=== PATIENT | male | born 1970 | race Caucasian/White ===

== ENCOUNTER 2020-06-28 21:31 | Emergency (ER) | payer OTHER, SELFPAY ==
--- NOTE | ~2020-06-28 | XR_ITS ---
XR chest 1V portable 06/28/2020 22:41 Indication: Midsternal chest pain and cough Procedure: AP portable chest Comparison: 06/25/2018 Findings: Heart size upper normal for technique. No focal air space disease, pulmonary edema, pleural effusion or suspected pneumothorax. Mildly elevated right diaphragm. Impression: 1: No acute cardiopulmonary disease. Reviewed, dictated and finalized at location A. Impression: 1: No acute cardiopulmonary disease.
[2020-06-28 21:40] VITALS: BP 143/88; PULSE 110; RESP 16; TEMP 36.5; O2SAT 97
--- NOTE | 2020-06-28 22:33 | ED.GENADULT ---
HPI - General Adult General Chief complaint: Upper Respiratory Infection Stated complaint: cough Time Seen by Provider: 06/28/20 22:32 Source: patient, family and RN notes reviewed Mode of arrival: ambulatory Limitations: no limitations History of Present Illness HPI narrative: Patient is 49 years old white male presents with productive cough over the last 2 weeks. Patient denies exposure to anybody with COVID-19. Patient lives with his who is asymptomatic. Patient reports productive cough of green and yellow sputum. Patient is a smoker. Last time was seen by a physician over 2 years ago. Does not take medicine at home. Related Data Allergies Allergy/AdvReac Type Severity Reaction Status Date / Time No Known Allergies Allergy Unverified 06/25/18 01:15 Review of Systems Review of Systems: Narrative: CONSTITUTIONAL: Denies fever, chills, or sweats. EYES: Denies visual changes, redness, or discharge. ENT: Denies rhinorrhea, congestion, sore throat, or otalgia. CARDIOVASCULAR: Denies chest pain, palpitations, or edema. RESPIRATORY: Denies cough or dyspnea. GASTROINTESTINAL: Denies abdominal pain, nausea, vomiting, or diarrhea. GENITOURINARY: Denies dysuria or hematuria. SKIN: Denies rash or itching. MUSCULOSKELETAL: Denies back pain, joint pain, or myalgia. NEUROLOGIC: Denies headache, numbness, or weakness. PSYCHIATRIC: Denies anxiety or depression. Exam Narrative: Exam Narrative: General appearance: Well-developed, well-nourished, at the bedside Skin: Normal color Head: Normocephalic, nontraumatic Eyes: Clear conjunctiva ENT: Oropharynx normal, ears normal, nose normal Neck: Supple, nontender Chest and respiratory: Diminution of air entry bilaterally Heart: Tachycardia Abdomen: Soft, nontender, no organomegaly, quiet bowel sounds Vascular: Normal peripheral pulses, normal capillary refill. 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 Labs, chest x-ray ordered. Further plan to follOW Differential Diagnosis Differential Diagnosis: Pneumonia, bronchitis, COPD, CHF Vital Signs Vital Signs: Vital Signs Temperature 36.5 C 06/28/20 21:40 Pulse Rate 110 H 06/28/20 21:40 Respiratory Rate 16 06/28/20 21:40 Blood Pressure 143/88 H 06/28/20 21:40 Pulse Oximetry 97 06/28/20 21:40 Temperature 36.5 C 06/28/20 21:40 Pulse Rate 110 H 06/28/20 21:40 Respiratory Rate 16 06/28/20 21:40 Blood Pressure 143/88 H 06/28/20 21:40 Pulse Oximetry 97 06/28/20 21:40 ABG Data ABG results: 06/28/20 23:21 Puncture Site Right radial ABG pH 7.455 H ABG pCO2 38.2 ABG pO2 88.7 ABG PO2/FiO2 Ratio 4.22 ABG HCO3 26.3 H ABG O2 Saturation 97.2 ABG O2 Content 19.8 ABG Base Excess 2.4 A-a Gradient 15.3 Oxyhemoglobin 92.0 Total Hemoglobin 15.3 O2 Delivery Device Room air O2 Liters/Min Not Reportable FiO2 21 Critical Care Time Critical Care Time Critical Care Time: Yes Total Critical Care Time: 35 Di
--- NOTE | 2020-06-28 23:03 | ECG_ITS ---
Measurements Intervals [place] Rate: 103 P: 47 HI: 132 QRS: -62 QRSD: 140 T: 18 QT: 334 QTc: 438 Interpretive Statements SINUS TACHYCARDIA RIGHT BUNDLE BRANCH BLOCK LEFT ANTERIOR FASCICULAR BLOCK ABNORMAL ECG Electronically Signed On 06-29-2020 7:10:31 CDT by Shaan Main D.O.
[2020-06-28 23:26] LABS: Alveolar/Arterial O2 Gradient 15.3 mmHg; Base Excess ABG 2.4 mEq/l (+/-2.0); Fractional Inspired Oxygen 21 %; HCO3 ABG 26.3 mEq/l (22.0-26.0); Oxygen Content ABG 19.8 %vol (16.0-22.0); Oxygen Saturation ABG 97.2 % (95.0-100.0); PCO2 ABG 38.2 mmHg (35.0-45.0); PO2 ABG 88.7 mmHg (80.0-100.0); PO2 FiO2 Ratio Arterial Blood 4.22 %; Total Hemoglobin 15.3 g/dL (12.0-18.0); pH ABG 7.455 (7.350-7.450)
[2020-06-28 23:27] LABS: Device ROOM AIR; Modified Allen's Test Pass; Site Drawn RIGHT RADIAL
[2020-06-28 23:47] LABS: Basophils Absolute Auto 0.1 K/mm3 (0.0-0.1); Basophils Percent Auto 0.7 % (0.2-1.2); Eosinophils Absolute Auto 0.2 K/mm3 (0-0.3); Eosinophils Percent Auto 2.1 % (0-4.4); Hematocrit 43.8 % (42.0-52.0); Immature Granulocyte Absolute 0.03 K/mm3 (0.00-0.031); Immature Granulocyte Percent A 0.3 % (0-0.5); Lymphocytes Absolute Auto 3.25 K/mm3 (0.9-3.2); Lymphocytes Percent Auto 36.8 % (18.3-44.2); Mean Corpuscular HGB Conc 34.2 g/dl (32-36); Mean Corpuscular Hemoglobin 31.8 pg (26-34); Mean Corpuscular Volume 92.8 fl (80-100); Mean Platelet Volume 9.9 fl (7.4-10.4); Monocytes Absolute Auto 0.9 K/mm3 (0.1-0.6); Neutrophils Absolute Auto 4.4 K/mm3 (1.3-6.7); Neutrophils Percent Auto 50.1 % (45.5-73.1); Platelet Count Result 327 k/mm3 (150-375); Red Blood Count 4.72 M/mm3 (4.6-6.20); Red Cell Distribution Width 13.1 % (11.5-14.5); White Blood Count 8.8 K/mm3 (4.5-10.0)
[2020-06-28] MEDS: predniSONE 20 MG TABLET 60 MG PO (23:48)
[2020-06-28] MEDS: KETOROLAC 30 MG/ML VIAL (*BKC) IV PUSH (23:49)
[2020-06-29 00:07] LABS: D Dimer 0.79 ug/mL (<0.48)
[2020-06-29 00:11] LABS: Alanine Aminotransferase 20 U/L (4-50); Alkaline Phosphatase 95 U/L (38-126); Anion Gap 6 mmol/L (8-16); Aspartate Amino Transferase 29 U/L (17-59); Bilirubin,Total 0.2 mg/dL (0.2-1.3); Blood Urea Nitrogen 14 mg/dL (9-20); Calcium 9.1 mg/dL (8.4-10.2); Carbon Dioxide 29 mmol/L (22-30); Chloride 104 mmol/L (98-107); Estimated CRCL calculation 90 ml/min; Estimated Glomerular Filt Rate > 60; Glucose 132 mg/dL (75-110); Potassium 4.1 mmol/L (3.4-5.0); Sodium 139 mmol/L (137-145)
[2020-06-29 00:15] VITALS: BP 140/85; PULSE 89; RESP 20; O2SAT 97
== END 2020-06-29 00:17 | disposition home or self-care (01) ==
PROVIDERS: Emergency Provider Emergency Medicine
DX: J40 Bronchitis, not specified as acute or chronic (principal); R00.0 Tachycardia, unspecified; I45.2 Bifascicular block
CPT/HCPCS: 36415; 36600; 71045; 80053; 82805; 85025; 85380; 93005; 96374; 99284; J1885; J7512

== ENCOUNTER 2022-02-05 22:16 | Observation (INO) | payer OTHER, SELFPAY ==
--- NOTE | ~2022-02-05 | CT_ITS ---
EXAMINATION: CT hand LT wo con DATE: 02/06/2022 03:56 INDICATION: Recent spider bite. TECHNIQUE: Computed tomography (CT) of the left hand was performed without intravenous contrast. The dose-length product was 503.17 mGy-cm. Automated exposure control and iterative reconstruction techni que were employed. Corresponding left hand x-ray performed. COMPARISON: None FINDINGS: Left hand x-ray: No fracture, subluxation or dislocation. Mild osteoarthritis. No focal sof t tissue abnormalities. No foreign bodies. Graft CT left hand: There is skin thickening and subcutane ous infiltration. Involving the dorsal surface most prominent along the radial aspect. No discrete ab scess identified. No gas identified to suggest necrotizing infection. Process appears to be limited t o muscular fascial layers and does not involve the intrinsic muscles of the hand at the radial aspect . No acute fracture or traumatic malalignment. There is an avulsion fracture dorsal to the carpal bon es. IMPRESSION: 1. Skin thickening with subcutaneous infiltration dorsal aspect of the hand most prominent along the radial aspect. No abscess. Findings suspicious for cellulitis. Consider correlation with MRI. Reviewed, dictated and finalized at location A. IMPRESSION: 1. Skin thickening with subcutaneous infiltration dorsal aspect of the hand mos t prominent along the radial aspect. No abscess. Findings suspicious for cellul itis. Consider correlation with MRI.
--- NOTE | ~2022-02-05 | XR_ITS ---
XR hand LT min 3V 02/06/2022 01:22 Indication: Wound to the proximal thumb. Spider bite. Procedure: 3 views left hand Comparison: No prior studies for comparison. Findings: No fracture, subluxation or dislocation. No significant soft tissue abnormality. No foreign bodies. Impression: 1: No acute bone or joint abnormality. Reviewed, dictated and finalized at location A. Impression: 1: No acute bone or joint abnormality.
[2022-02-05 22:18] VITALS: BP 147/103; PULSE 101; RESP 18; TEMP 36.8; O2SAT 100
[2022-02-06] VITALS (14 sets, daily range): BP systolic 124–151; BP diastolic 68–97; PULSE 70–74; RESP 17–20; TEMP 36.4–37.1; O2SAT 97–100; BMI 35.9
--- NOTE | 2022-02-06 00:16 | ED.WOUNDLAC ---
HPI - Wound/Laceration General Chief Complaint: Wound/Laceration Stated Complaint: wound L hand Time Seen by Provider: 02/06/22 00:11 Source: patient Mode of arrival: ambulatory Limitations: no limitations History of Present Illness HPI narrative: This is a 51-year-old male that presents to the emergency department for a wound to the left hand. Noted over the last couple of days. Reports he has had drainage from the area. He cleaned it out with a knife earlier today. Does report he is an IV drug user, but that he did not shoot up in the hand. Denies fevers. Related Data Allergies Allergy/AdvReac Type Severity Reaction Status Date / Time No Known Allergies Allergy Verified 02/05/22 22:21 Review of Systems Review of Systems: CONSTITUTIONAL: Denies fever SKIN: Reports wound All systems reviewed & are unremarkable except as noted in HPI and below PMFSH Past Medical History Medical History (Updated 02/06/22 @ 01:10 by Devorah Moran PA-C) History of drug abuse Social History Social History (Updated 02/06/22 @ 00:16 by Devorah Moran PA-C) Smoking status: Current every day smoker Substance use: current Substance use type: methamphetamine Exam Narrative: GENERAL: Disheveled, well-nourished, and in no acute distress. HEAD: Normocephalic, atraumatic. EYES: EOMI. CHEST: Clear to auscultation. No respiratory distress. No wheezes rales or rhonchi HEART: Regular rate and rhythm. No murmur heard. Normal peripheral pulses. EXTREMITIES: Normal range of motion. At the base of the left hand 3cm circular wound with erythema and edema, the central portion is 0.5cm deep. Normal radial pulse. No lymphangitic streaking SKIN: Warm, dry, no rash. NEURO: No focal deficits. Alert and oriented x3. PSYCH: Normal mood and affect Course Vital Signs Vital signs: Vital Signs Temperature 98.2 F 02/05/22 22:18 Pulse Rate 101 H 02/05/22 22:18 Respiratory Rate 18 02/05/22 22:18 Blood Pressure 147/103 H 02/05/22 22:18 Pulse Oximetry 100 02/05/22 22:18 Temperature 98.2 F 02/05/22 22:18 Pulse Rate 101 H 10/29/22 22:18 Respiratory Rate 18 02/05/22 22:18 Blood Pressure 151/86 H 02/06/22 03:16 Pulse Oximetry 98 02/06/22 03:30 MDM - Wound/Laceration MDM Narrative Medical decision making narrative: Patient presents emergency department for redness and swelling of the left hand noted over the last week. Worsening over the last couple of days. Patient is afebrile and nontoxic-appearing. CBC without leukocytosis. ESR is elevated. Lactic also mildly elevated at 2.1. Left hand x-ray without evidence of soft tissue gas or foreign body. Spoke with hospitalist about patient work-up who accepts admission for further management of cellulitis. CT scan of the hand ordered to further evaluate. Blood cultures were drawn. Patient started on IV antibiotics Lab Data Attestation: I reviewed the patient's lab results. Result diagrams: 02/06/22 00:41 02/06/22 00:41 Labs: Lab Results 02/06/22 02/06/22 02/06/22 Range/Units 00:41 00:41 00:41 WBC 5.7 (4.5-10.0) K/mm3 RBC 4.41 L (4.6-6.20) M/mm3 Hgb 13.7 L (14.0-18.0) g/dL Hct 41.6 L (42.0-52.0) % MCV 94.3 (80-100) fl MCH 31.1 (26-34) pg MCHC 32.9 (32-36) g/dl RDW 12.7 (11.5-14.5) % Plt Count 270 (150-375) k/mm3 MPV 9.6 (7.4-10.4) fl Immature Gran % (Auto) 0.2 (0-0.5) % Neut % (Auto) 51.5 (45.5-73.1) % Lymph % (Auto) 34.5 (18.3-44.2) % [place] % (Auto) 10.0 H (2.6-8.5) % Eos % (Auto) 3.3 (0-4.4) % Baso % (Auto) 0.5 (0.2-1.2) % Lymph # (Auto) 1.96 (0.9-3.2) K/mm3 [place] # (Auto) 0.6 (0.1-0.6) K/mm3 Eos # (Auto) 0.2 (0-0.3) K/mm3 Baso # (Auto) 0.0 (0.0-0.1) K/mm3 Abs Immat Gran (auto) 0.01 (0.00-0.031) K/mm3 Absolute Neuts (auto) 2.9 (1.3-6.7) K/mm3 Absolute Nucleated RBC 0.0 (0.0-0.012) K/mm3 Nucleated RBC
[2022-02-06 00:49] LABS: Basophils Percent Auto 0.5 % (0.2-1.2); Eosinophils Absolute Auto 0.2 K/mm3 (0-0.3); Eosinophils Percent Auto 3.3 % (0-4.4); Hematocrit 41.6 % (42.0-52.0); Hemoglobin 13.7 g/dL (14.0-18.0); Immature Granulocyte Absolute 0.01 K/mm3 (0.00-0.031); Immature Granulocyte Percent A 0.2 % (0-0.5); Lymphocytes Absolute Auto 1.96 K/mm3 (0.9-3.2); Lymphocytes Percent Auto 34.5 % (18.3-44.2); Mean Corpuscular HGB Conc 32.9 g/dl (32-36); Mean Corpuscular Hemoglobin 31.1 pg (26-34); Mean Corpuscular Volume 94.3 fl (80-100); Mean Platelet Volume 9.6 fl (7.4-10.4); Monocytes Absolute Auto 0.6 K/mm3 (0.1-0.6); Neutrophils Absolute Auto 2.9 K/mm3 (1.3-6.7); Neutrophils Percent Auto 51.5 % (45.5-73.1); Platelet Count Result 270 k/mm3 (150-375); Red Blood Count 4.41 M/mm3 (4.6-6.20); Red Cell Distribution Width 12.7 % (11.5-14.5); White Blood Count 5.7 K/mm3 (4.5-10.0)
[2022-02-06 01:04] LABS: Lactic Acid Reflex 2.1 mmol/L (0.7-2.0)
[2022-02-06 01:06] LABS: Anion Gap 7 mmol/L (8-16); Blood Urea Nitrogen 13 mg/dL (9-20); CRP 0.9 mg/dL (<1.0); Calcium 8.8 mg/dL (8.4-10.2); Carbon Dioxide 29 mmol/L (22-30); Chloride 103 mmol/L (98-107); Estimated CRCL calculation 81 ml/min; Estimated Glomerular Filt Rate > 60; Glucose 124 mg/dL (65-110); Potassium 4.2 mmol/L (3.4-5.0); Sodium 139 mmol/L (137-145)
[2022-02-06] MEDS: SODIUM CHLORIDE 0.9% IV 1,000 ML 999 ML IV CONT (01:25)
[2022-02-06 01:30] LABS: Erythrocyte Sedimentation Rate 28 mm/hr (0-20)
--- NOTE | 2022-02-06 03:23 | PM.IMHP ---
H&P: HPI History of Present Illness Date/Time: 02/06/22 03:23 Chief Complaint: hand cellulitis Narrative: This is a 51-year-old male with past medical history significant for intravenous drug use patient injects methamphetamine, tobacco dependence, smokes 1 pack of cigarettes a daily. Patient presents to the emergency room due to left hand abscess he questions whether could be a brown recluse spider bite patient denies any fevers, rigors, chills, nausea, vomiting, diarrhea, abdominal pain, patient did incision and drainage at home with knife. according to patient this has been present for the last 6 days or so. A CT of the hand is in progress preliminary workup was significant for a lactic acid of 2.1 a hemoglobin of 13. Patient is been admitted for further evaluation management and treatment. Review of Systems Review of Systems: Left hand ulcer, abscess, cellulitis. Constitutional: Constitutional: Denies body ache(s), Denies chills, Denies fever(s), Denies lethargy, Denies malaise, Denies night sweats, Denies poor appetite and Denies weakness Eyes: Eyes: Denies change in vision ENT: Denies dysphagia, Denies vertigo, Denies dizziness and Denies odynophagia Cardiovascular: Cardiovascular: Denies chest pain, Denies leg edema and Denies dyspnea Respiratory: Respiratory: Denies chest congestion and Denies cough Gastrointestinal: Gastrointestinal: Denies abdominal pain, Denies dyspepsia, Denies heartburn, Denies diarrhea, Denies nausea and Denies vomiting Genitourinary: Genitourinary: Denies dysuria Musculoskeletal: Musculoskeletal: Reports other ( left hand ulcer, redness, tenderness.) Integumentary/Breasts: Skin/Breast: Reports erythema, Reports skin pain, Reports skin swelling, Reports skin ulcer and Reports wounds ( left hand ) Neurologic: Denies vertigo, Denies dizziness, Denies focal weakness and Denies Sensory deficit (Neuro) Psychiatric: Psychiatric: Reports no additional psychiatric complaints and Reports as per HPI Endocrine: Endocrine: Denies cold intolerance, Denies flushing, Denies heat intolerance, Denies polyphagia, Denies polydipsia and Denies palpitations Hematologic/Lymphatic: Hematologic/Lymphatic: Reports no additional hematologic/lymphatic complaints and Reports as per HPI Allergic/Immunologic: Allergic/Immunologic: Reports no additional allergic/immunologic complaints and Reports as per HPI [facility] Past Medical History Medical History (Updated 02/06/22 @ 04:28 by Rebekah Saul MD) History of drug abuse Social History Social History (Updated 02/06/22 @ 00:16 by Devorah Moran PA-C) Smoking status: Current every day smoker Substance use: current Substance use type: methamphetamine Meds Home Medications and Allergies Allergies Allergy/AdvReac Type Severity Reaction Status Date / Time No Known Allergies Allergy Verified 02/05/22 22:21 Vital Signs Vital Signs - 24 hr 02/05/22 22:18 Temperature 98.2 F Pulse Rate 101 H Respiratory Rate 18 Blood Pressure 147/103 H Pulse Oximetry 100 Exam Narrative: patient is laying in a stretcher Const: General: comfortable, no acute distress, well developed, alert, awake and average body habitus Nutritional Appearance: obese Orientation/consciousness: patient oriented x3 HENMT: Head: normal to inspection, normocephalic and atraumatic Ears: hearing grossly normal bilaterally Face/Nose/Sinus: normal facial exam Face and sinus: normal facial exam Eyes: General: appearance normal, both eyes and all related structures Pupils: Equal, round and reactive pupils present EOM: EOMs intact bilaterally Neck: Neck: full ROM, no lymphadenopathy and no JVD Thyroid: thyroid normal Lymphatic: no lymphadenopathy noted Resp: Effort & Inspection: normal respiratory effort and able to speak in complete sentences Auscultation: clear to auscultation bilaterally Cardio: Jugular venous distension: no JVD Rate: regular rate Rhythm: r
--- NOTE | 2022-02-06 03:41 | PC.NURSE ---
Patient taken to CT at this time.
[2022-02-06 03:46] LABS: Reflex Lactic Acid Yes or No Add Lactic
--- NOTE | 2022-02-06 08:08 | ADMGEN ---
This patient, Donaldo Sommer, was admitted to [facility] Surg Room 319-01. Patient/family oriented to hospital policies and general routines including ID bracelet, bed and alarms, visiting hours, pain management, procedures, bathroom and other care routines, personal items, smoking policy, room service/diet, and visiting hours. Information on how to activate the Rapid Response Team has been discussed. Patient/Family are encouraged to report perceived risks to care and to ask questions if they do not understand what they are told or what they should do. Patient is in room relaxing, Patient was given food and drinks and wanted to go to sleep and relax after admission.
[2022-02-06 08:49] LABS: Basophils Percent Auto 0.7 % (0.2-1.2); Eosinophils Absolute Auto 0.2 K/mm3 (0-0.3); Eosinophils Percent Auto 3.2 % (0-4.4); Hemoglobin 13.9 g/dL (14.0-18.0); Immature Granulocyte Absolute 0.01 K/mm3 (0.00-0.031); Immature Granulocyte Percent A 0.2 % (0-0.5); Lymphocytes Absolute Auto 2.24 K/mm3 (0.9-3.2); Lymphocytes Percent Auto 40.4 % (18.3-44.2); Mean Corpuscular HGB Conc 33.9 g/dl (32-36); Mean Corpuscular Hemoglobin 31.1 pg (26-34); Mean Corpuscular Volume 91.7 fl (80-100); Mean Platelet Volume 9.4 fl (7.4-10.4); Monocytes Absolute Auto 0.5 K/mm3 (0.1-0.6); Monocytes Percent Auto 8.3 % (2.6-8.5); Neutrophils Absolute Auto 2.6 K/mm3 (1.3-6.7); Neutrophils Percent Auto 47.2 % (45.5-73.1); Platelet Count Result 268 k/mm3 (150-375); Red Blood Count 4.47 M/mm3 (4.6-6.20); Red Cell Distribution Width 12.6 % (11.5-14.5); White Blood Count 5.5 K/mm3 (4.5-10.0)
[2022-02-06 09:21] LABS: Anion Gap 10 mmol/L (8-16); Blood Urea Nitrogen 12 mg/dL (9-20); Calcium 8.6 mg/dL (8.4-10.2); Carbon Dioxide 29 mmol/L (22-30); Chloride 103 mmol/L (98-107); Estimated CRCL calculation 99 ml/min; Estimated Glomerular Filt Rate > 60; Glucose 115 mg/dL (65-110); Magnesium 2.2 mg/dL (1.6-2.3); Potassium 3.7 mmol/L (3.4-5.0); Sodium 142 mmol/L (137-145)
[2022-02-06 09:22] LABS: Lactic Acid Reflex 1.1 mmol/L (0.7-2.0)
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
--- NOTE | 2022-02-06 19:44 | PC.NURSE ---
Attempted to call patient and contact listed in chart; constantine left in room. No answer.
--- NOTE | 2022-03-17 04:27 | PM.EVENT ---
Event Note Event Note Event Note: Patient left AMA.
== END 2022-02-06 14:45 | disposition left against medical advice (07) ==
LOC: ANHED 02-06 03:44 → ANH3MEDSUR 02-06 03:54
PROVIDERS: Physician Assistant; Admitting Provider Internal Medicine; Emergency Provider Emergency Medicine; Visit Provider Internal Medicine
DX: L03.114 Cellulitis of left upper limb (principal); L98.499 Non-pressure chronic ulcer of skin of other sites with unspecified severity; F15.10 Other stimulant abuse, uncomplicated; F17.210 Nicotine dependence, cigarettes, uncomplicated; R70.0 Elevated erythrocyte sedimentation rate; R74.02 Elevation of levels of lactic acid dehydrogenase [LDH]; Z53.29 Procedure and treatment not carried out because of patient's decision for other reasons
CPT/HCPCS: 36415; 73130; 73200; 80048; 83605; 83735; 85025; 85652; 86140; 87040; 87070; 87147; 87181; 87186; 87205; 96361; 96365; 96366; 96367; 99285; G0378; G0379; J0690; J3370; J7030

== ENCOUNTER 2022-12-13 19:24 | Emergency (ER) | payer OTHER, SELFPAY ==
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
--- NOTE | ~2022-12-13 | CT_ITS ---
EXAMINATION: CTA chest PE protocol DATE: 12/13/2022 20:56 INDICATION: elev dimer and cp TECHNIQUE: Computed tomography angiography (CTA) of the chest was performed with 100 mL Omnipaque-350 intravenous contrast timed to evaluate the pulmonary arteries. Coronal maximum intensity projection 3D-reconstructions were created by the technologist. The dose-length product (DLP) was 1005.13 mGy-cm . Automated exposure control and iterative reconstruction technique were employed. COMPARISON: X-ray chest, same date; CTPA 06/25/2018. FINDINGS: Lung parenchyma and airways: Bibasilar scar/atelectasis. Pleura: Very small volume left pleural fluid collection. Thoracic inlet, axillae and chest wall: Unremarkable. Thoracic aorta: Mild arch calcification and ectasia. Mediastinum: Mildly patulous appearing esophagus. Prominent central pulmonary arteries as can be seen with pulmonary arterial hypertension. Heart and pericardium: Normal. Coronary artery calcifications: Absent. Upper abdomen: No significant finding. Bones: Nondisplaced acute appearing left anterior fourth and fifth rib fractures. Pulmonary arteries: Study quality: Adequate. No pulmonary emboli detected. IMPRESSION: No CT evidence of acute pulmonary embolus. Nondisplaced acute appearing left anterior fourth and fifth rib fractures. Trace left pleural effusion. Reviewed, dictated and finalized at location K.
--- NOTE | 2022-12-13 19:33 | ECG_ITS ---
Measurements Intervals [place] Rate: 88 P: 61 MA: 129 QRS: -37 QRSD: 156 T: 22 QT: 359 QTc: 435 Interpretive Statements SINUS RHYTHM LEFT AXIS DEVIATION RIGHT BUNDLE BRANCH BLOCK BASELINE ARTIFACT- I, II, AVR, AVL, AVF ABNORMAL ECG COMPARED TO ECG 06/28/2020 23:25:52 SINUS RHYTHM NOW PRESENT Electronically Signed On 12-13-2022 20:12:28 CDT by Shaan Main D.O.
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
[2022-12-13 19:41] VITALS: BP 163/115; PULSE 100; RESP 18; TEMP 36.9; O2SAT 97
[2022-12-13 20:03] LABS: Basophils Absolute Auto 0.05 K/mm3 (0.00-0.10); Basophils Percent Auto 0.6 % (0.0-1.0); Eosinophils Absolute Auto 0.12 K/mm3 (0.02-0.50); Eosinophils Percent Auto 1.5 % (1.0-6.0); Hemoglobin 13.7 g/dL (14.0-18.0); Immature Granulocyte Absolute 0.05 K/mm3 (0.00-0.00); Immature Granulocyte Percent A 0.6 % (0.0-0.0); Lymphocytes Absolute Auto 1.61 K/mm3 (1.10-4.50); Lymphocytes Percent Auto 19.8 % (18.0-42.0); Mean Corpuscular HGB Conc 32.6 g/dL (32.0-36.0); Mean Corpuscular Hemoglobin 31.9 pg (27.0-31.0); Mean Corpuscular Volume 97.7 fL (78.0-102.0); Mean Platelet Volume 10.1 fl (8.7-11.0); Monocytes Absolute Auto 0.62 K/mm3 (0.10-0.90); Monocytes Percent Auto 7.6 % (2.0-11.0); Neutrophils Absolute Auto 5.7 K/mm3 (1.7-7.2); Neutrophils Percent Auto 69.9 % (50.0-70.0); Platelet Count Result 229 K/mm3 (150-420); Red Cell Distribution Width 12.9 % (11.6-14.4); White Blood Count 8.2 K/mm3 (4.8-10.8)
[2022-12-13 20:18] LABS: INR 0.9; Partial Thromboplastin Time 21.9 SEC (23.90-30.70); Prothrombin Time 10.2 Seconds (9.50-12.10)
[2022-12-13 20:21] LABS: Alanine Aminotransferase 24 U/L (16-63); Albumin Level 3.3 g/dL (3.4-5.0); Alkaline Phosphatase 96 U/L (46-116); Anion Gap 5 mmol/L (8-16); Aspartate Amino Transferase 36 U/L (15-37); Bilirubin,Total 0.5 mg/dL (0.00-1.00); Blood Urea Nitrogen 12 mg/dL (7-18); Carbon Dioxide 28 mmol/L (21-32); Chloride 104 mmol/L (98-108); Creatine Kinase 143 U/L (39-308); Estimated CRCL calculation 88 ml/min; Estimated Glomerular Filt Rate > 60; Glucose 95 mg/dL (70-99); Osmolality Calculated 283 mOsm/kg (285-295); Potassium 4.9 mmol/L (3.5-5.1); Sodium 137 mmol/L (136-145); Total Protein 7.4 g/dL (6.4-8.2); Troponin I 8.8 ng/L (0.00-60.4)
[2022-12-13] MEDS: MORPHINE SULFATE (*CRX) 4 MG/ML INJ IV PUSH (20:40)
[2022-12-13] MEDS: levoFLOXacin TAB 500 MG, levoFLOXacin TAB 250 MG 750 MG PO (20:40)
[2022-12-13 21:52] VITALS: BP 120/98; PULSE 81; RESP 16; TEMP 36.4; O2SAT 98
== END 2022-12-13 22:06 | disposition home or self-care (01) ==
PROVIDERS: Emergency Provider Emergency Medicine
DX: S22.42XA Multiple fractures of ribs, left side, initial encounter for closed fracture (principal); J18.9 Pneumonia, unspecified organism; F17.210 Nicotine dependence, cigarettes, uncomplicated; W20.8XXA Other cause of strike by thrown, projected or falling object, initial encounter
CPT/HCPCS: 36415; 71046; 71275; 80053; 82550; 84484; 85025; 85380; 85610; 85730; 93005; 96374; 99284; A9270; J2270; Q9967

== ENCOUNTER 2024-03-13 10:40 | Emergency (ER) | payer OTHER, SELFPAY ==
[2024-03-13 10:40] VITALS: BP 155/105; PULSE 99; RESP 16; TEMP 36.1; O2SAT 95
--- NOTE | 2024-03-13 11:00 | ED_ITS ---
HPI - Skin/Abscess/Foreign Bdy General Chief complaint: Skin/Abscess/Foreign Body Stated complaint: spider bite Time Seen by Provider: 03/13/24 10:59 Source: patient Mode of arrival: ambulatory Limitations: no limitations History of Present Illness HPI narrative: 53 years old white male came to the ED by private car complaining of soreness and redness at the top of the right foot noticed this morning after waking up from sleep. Patient believes that he got bitten by spider last night. patient reports that there is last spider at home where he live. He denies any fever, chills, nausea, vomiting, abdominal pain, headache, diarrhea, diaphoresis. Patient also denies any trauma. Patient is not diabetic. Related Data Home Medications Medication Instructions Recorded Confirmed amitriptyline 25 mg tablet 25 mg PO DAILY 03/13/24 03/13/24 clonidine HCl 0.1 mg tablet 0.1 mg PO DAILY 03/13/24 03/13/24 hydroxyzine pamoate 50 mg capsule 50 mg PO DAILY 03/13/24 03/13/24 sertraline 50 mg tablet 50 mg PO DAILY 03/13/24 03/13/24 trazodone 50 mg tablet 50 mg PO DAILY 03/13/24 03/13/24 Allergies Allergy/AdvReac Type Severity Reaction Status Date / Time No Known Allergies Allergy Verified 03/13/24 10:46 Review of Systems Review of Systems: All systems reviewed & are unremarkable except as noted in HPI and below PMFSH Past Medical History Medical History History of drug abuse Social History Social History Smoking status: Heavy tobacco smoker Tobacco type: cigarettes Second hand tobacco smoke exposure: No Alcohol intake: current Substance use: current Substance use type: methamphetamine Lack of Transportation: No Lack of Food: Never True Current Housing: I Have Housing Concerned About Future Housing: No Difficulty Paying Gas/Electric Bills: No Difficulty Paying for Meds: No Currently Unemployed: No Education: High School Diploma/GED Difficulty w/ Childcare or Family Care: No Spiritual care concerns: No Exam Narrative: General appearance: Well-developed, well-nourished Skin: Normal color Head: Normocephalic, nontraumatic Eyes: Chest and respiratory: Airway patent, no respiratory distress, no accessory muscle use Heart: Regular rate/rhythm Vascular: Normal peripheral pulses, normal capillary refill. Musculoskeletal: Right foot showing an erythematous changes, 2 x 3 cm, tender to touch, slightly warm, no discharge, patient have 3 cm cardiac of of the sole at the 1st metatarsophalangeal joint, extensive fungal infection Neurologic: Alert and oriented ?3, CERTIFIED ENDOSCOPY TECHNICIAN is normal as tested, no gross motor deficit Course Vital Signs Vital signs: Vital Signs Temperature 36.1 C L 03/13/24 10:40 Pulse Rate 99 03/13/24 10:40 Respiratory Rate 16 03/13/24 10:40 Blood Pressure 155/105 H 03/13/24 10:40 Pulse Oximetry 95 03/13/24 10:40 Oxygen Delivery Room Air 03/13/24 10:40 Temperature 36.1 C L 03/13/24 10:40 Pulse Rate 99 03/13/24 10:40 Respiratory Rate 16 03/13/24 10:40 Blood Pressure 155/105 H 03/13/24 10:40 Pulse Oximetry 95 03/13/24 10:40 Oxygen Delivery Room Air 03/13/24 10:40 MDM - Skin/Abscess/Foreign Bdy MDM Narrative Medical decision making narrative: patient presents with soreness and redness at the top of the right foot, differential diagnosis include tendinitis, insect bite, cellulitis. No labs or imaging are required at this time. Patient is not diabetic. Discharged on Keflex and naproxen. Differential Diagnosis Differential diagnosis: Likely other ( As above) Critical Care Time Critical Care Time Critical Care Time: No Discharge Plan Discharge Clinical Impression: Acute foot pain Patient Disposition: Home, Self-Care Condition: Stable Instructions: Antibiotic Form, Cellulitis (ED) Additional Instructions: Return if symptoms are worsening , call your family physician for appointment, take Tylenol as as needed for aches and pain, continue home medications. Keep foot elevated Prescriptions: New cephalexin 500 mg capsule 500 mg PO Q6H 7 Days Qty: 28 0RF naproxen 500 mg tablet 500 mg PO BID PRN (Reason: pain) Qty: 20 0RF No Action clonidine HCl 0.1 mg tablet 0.1 mg PO DAILY trazodone 50 mg tablet 50 mg PO DAILY hydroxyzine pamoate 50 mg capsule 50 mg PO DAILY amitriptyline 25 mg tablet 25 mg PO DAILY sertraline 50 mg tablet 50 mg PO DAILY Follow-up/Referrals: Corey Casey Jr., SHER [Physician] - 03/18/24 UNKNOWN,DOCTOR [Primary Care Provider] - Stand Alone Forms: Work/School Release IP
== END 2024-03-13 11:10 | disposition home or self-care (01) ==
LOC: CHSED 11:07
PROVIDERS: Emergency Provider Emergency Medicine
DX: M79.671 Pain in right foot (principal); F17.210 Nicotine dependence, cigarettes, uncomplicated; F15.90 Other stimulant use, unspecified, uncomplicated
CPT/HCPCS: 99283

== ENCOUNTER 2024-03-30 11:20 | Outpatient (CLI) | payer OTHER, SELFPAY ==
--- NOTE | ~2024-03-30 | XR_ITS ---
[id number] DATE: 03/30/2024 11:48 INDICATION: Left knee pain TECHNIQUE: AP and lateral views COMPARISON: 12/08/2017 left knee FINDINGS: There is moderate medial compartment joint space narrowing and mild periarticular spurring of the medial femoral condyle and patella, consistent with osteoarthritis. Lateral compartment joint space is well preserved. No fracture or dislocation or joint effusion. No radiopaque intra-articular loose body or chondrocalc inosis. No periosteal reaction or bone destruction. IMPRESSION: Interval osteoarthritis involving the patellofemoral and medial compartments since 018 Reviewed, dictated and finalized at [facility] Reviewed, dictated and finalized at [facility] UTER SYSTEMS CONSULTANT IMPRESSION: Interval osteoarthritis involving the patellofemoral and medial com partments since 12/08/2017
[2024-03-30 11:59] LABS: Basophils Absolute Auto 0.04 K/mm3 (0.00-0.10); Basophils Percent Auto 0.5 % (0.0-1.0); Eosinophils Percent Auto 1.2 % (1.0-6.0); Hematocrit 48.9 % (40.0-54.0); Hemoglobin 17.1 g/dL (14.0-18.0); Immature Granulocyte Absolute 0.04 K/mm3 (0.00-0.00); Immature Granulocyte Percent A 0.5 % (0.0-0.0); Lymphocytes Absolute Auto 2.71 K/mm3 (1.10-4.50); Lymphocytes Percent Auto 31.8 % (18.0-42.0); Mean Corpuscular Hemoglobin 31.5 pg (27.0-31.0); Mean Corpuscular Volume 90.1 fL (78.0-102.0); Monocytes Absolute Auto 0.64 K/mm3 (0.10-0.90); Monocytes Percent Auto 7.5 % (2.0-11.0); Neutrophils Percent Auto 58.5 % (50.0-70.0); Platelet Count Result 276 K/mm3 (150-420); Red Blood Count 5.43 M/mm3 (4.70-6.10); Red Cell Distribution Width 13.2 % (11.6-14.4); White Blood Count 8.5 K/mm3 (4.8-10.8)
[2024-03-30 12:10] LABS: Hemoglobin A1C 5.3 % (<5.7)
[2024-03-30 12:19] LABS: Amphetamine Screen Urine Negative (Negative); Barbiturate Screen Urine Negative (Negative); Benzodiazepines Screen Urine Negative (Negative); Cannabinoid Screen Urine Negative (Negative); Cocaine Screen Urine Negative (Negative); Methadone Screen Urine Negative (Negative); Opiate Screen Urine Negative (Negative); Phencyclidine Screen Urine Negative (Negative)
[2024-03-30 12:42] LABS: Alanine Aminotransferase 30 U/L (16-63); Albumin Level 3.7 g/dL (3.4-5.0); Alkaline Phosphatase 101 U/L (46-116); Anion Gap 13 mmol/L (4-12); Aspartate Amino Transferase 19 U/L (15-37); Bilirubin,Total 0.6 mg/dL (0.00-1.00); Blood Urea Nitrogen 16 mg/dL (7-18); Calcium 9.2 mg/dL (8.5-10.1); Carbon Dioxide 24 mmol/L (21-32); Chloride 103 mmol/L (98-108); Cholesterol 186 mg/dL (0-200); Estimated Glomerular Filt Rate > 60; Glucose 107 mg/dL (70-99); HDL Direct 37 mg/dL (40-60); LDL Cholesterol Calculated 123 mg/dL (<130); Osmolality Calculated 291 mOsm/kg (285-295); Potassium 4.4 mmol/L (3.5-5.1); Sodium 140 mmol/L (136-145); Total Protein 7.6 g/dL (6.4-8.2); Triglycerides 130 mg/dL (0-150)
[2024-03-30 13:02] LABS: Thyroid Stimulating Hormone Reflex 1.64 u/IU/mL (0.36-3.74)
[2024-04-02 05:24] LABS: Hepatitis A Antibody IgM NON-REACTIVE (NON-REACTIVE); Hepatitis B Core Antibody NON-REACTIVE (NON-REACTIVE); Hepatitis B Surface Antigen NON-REACTIVE (NON-REACTIVE); Hepatitis C Virus Antibody REACTIVE (NON-REACTIVE)
[2024-04-02 15:28] LABS: Hepatitis C Viral RNA PCR <15 NOT DETECTED IU/mL (NOT DETECTED)
== END 2024-03-30 11:21 | disposition home or self-care (01) ==
LOC: CHSLAB 11:21
PROVIDERS: PCP Nurse Practitioner Family; Visit Provider Nurse Practitioner Family
DX: Z00.00 Encounter for general adult medical examination without abnormal findings (principal); M17.12 Unilateral primary osteoarthritis, left knee; G89.29 Other chronic pain; B19.20 Unspecified viral hepatitis C without hepatic coma; F15.10 Other stimulant abuse, uncomplicated; F19.90 Other psychoactive substance use, unspecified, uncomplicated; Z87.898 Personal history of other specified conditions
CPT/HCPCS: 36415; 73560; 80053; 80061; 80074; 80307; 83036; 84443; 85025

== ENCOUNTER 2024-07-17 13:55 | Emergency (ER) | payer OTHER, SELFPAY ==
[2024-07-17 13:55] VITALS: BP 153/94; PULSE 104; RESP 18; TEMP 36.3; O2SAT 96
--- NOTE | 2024-07-17 14:01 | ED_ITS ---
HPI - Skin/Abscess/Foreign Bdy General Chief complaint: Skin/Abscess/Foreign Body Stated complaint: POSSIBLE SPIDER BITE Time Seen by Provider: 07/17/24 14:01 Source: patient Mode of arrival: ambulatory Limitations: no limitations History of Present Illness HPI narrative: 53-year-old male with a history of smoking, IV drug abuse, amphetamine use, hepatitis-C, with recurrent cellulitis( prior history of left hand cellulitis, right foot cellulitis) presents to the ED with -- right lateral mid thigh cellulitis measuring 5 cm. central necrotic area measuring 2 cm with drainage this wound has been present for the past few days. No fever or chills. No history of injury. The patient thinks it is a spider bite. complaint: other ( Cellulitis ) Onset (ago): day(s) Tetanus up to date: yes Location: RLE ( right lateral mid thigh) Severity: severe Quality: aching Pain Consistency: constant Relieving factors: none Exacerbating factors: none Associated symptoms: denies other symptoms Treatments prior to arrival: none Related Data Allergies Allergy/AdvReac Type Severity Reaction Status Date / Time No Known Allergies Allergy Verified 07/17/24 13:59 Review of Systems Review of Systems: All systems reviewed & are unremarkable except as noted in HPI and below PMFSH Past Medical History Medical History History of crack cocaine use Methamphetamine abuse Sleep apnea Hypertension History of drug abuse Social History Social History Smoking packs per day: 0.75 Smoking cigarettes per day: 15.0 Years smoked: 46 Smoking pack-years: 34.50 Smoking status: Heavy tobacco smoker Tobacco type: cigarettes Second hand tobacco smoke exposure: No Alcohol intake: current Drinks per week: 4 Alcohol use details: weekend social drinking Substance use: former Substance use type: crack/cocaine and methamphetamine Last use: last meth use - 5 months prior, crack/cocaine IV/smoking - last 1+ month Lack of Transportation: No Lack of Food: Never True Current Housing: I Have Housing Concerned About Future Housing: No Difficulty Paying Gas/Electric Bills: No Difficulty Paying for Meds: No Currently Unemployed: No Education: High School Diploma/GED Difficulty w/ Childcare or Family Care: No Spiritual care concerns: No Exam Narrative: Vitals are stable Const: General: no acute distress Nutritional Appearance: well nourished Orientation/consciousness: patient oriented x3 Limitations: no limitations HENMT: Head: normal to inspection Ears: external ears normal Face/Nose/Sinus: Normal external nose present Face and sinus: normal facial exam Mouth: Yes Normal oral and palatal mucosa present Throat: posterior oropharynx normal Eyes: Conjunctivae: conjunctivae normal Pupils: Equal, round and reactive pupils present EOM: EOMs intact bilaterally Direct Ophthalmoscopy: no photophobia Neck: Neck: normal visual inspection, no lymphadenopathy and no meningeal signs Chest: Chest palpation & inspection: normal inspection of the chest Resp: Effort & Inspection: normal respiratory effort Auscultation: clear to auscultation bilaterally Cardio: Rate: regular rate Rhythm: regular rhythm GI: GI Palp: Yes Soft to palpation Auscultation: normal bowel sounds Other: no tenderness/ rigidity /rebound. : General: Yes no CVA tenderness Back/Spine/Pelvis: Back: no CVA tenderness Skin: General skin exam: normal color Other: Right lateral mid thigh cellulitis measuring 5 cm with a central area of 2 cm which appears necrotic and is draining. Neuro: General: patient oriented x3, moves all extremities, no meningeal signs, no focal motor deficits and CN's II-XI intact bilaterally Cranial nerves: Yes Nystagmus not present Speech: normal speech Extrem: General: normal to inspection and no clubbing, cyanosis or edema Psych: Mental Status: mental status grossly normal Affect: normal affect Attitude: cooperative Course Course Emergency Course: thigh cellulitis-- will get blood cultures, wound cultures a nasal MRSA. Patient will be started on Augmentin. Vital Signs Vital signs: Vital Signs Temperature 36.3 C L 07/17/24 13:55 Pulse Rate 104 H 07/17/24 13:55 Respiratory Rate 18 07/17/24 13:55 Blood Pressure 153/94 H 07/17/24 13:55 Pulse Oximetry 96 07/17/24 13:55 Oxygen Delivery Room Air 07/17/24 13:55 Temperature 36.3 C L 07/17/24 13:55 Pulse Rate 104 H 07/17/24 13:55 Respiratory Rate 18 07/17/24 13:55 Blood Pressure 153/94 H 07/17/24 13:55 Pulse Oximetry 96 07/17/24 13:55 Oxygen Delivery Room Air 07/17/24 13:55 MDM - Skin/Abscess/Foreign Bdy MDM Narrative Medical decision making narrative: Thigh cellulitis Differential Diagnosis Differential diagnosis: Likely abscess of skin or subcutaneous tissue and insect bites Medical Records Attestation: I reviewed the patient's medical records. Discharge Plan Discharge Clinical Impression: Cellulitis of right thigh Patient Disposition: Home Condition: Stable Instructions: Antibiotic Form, Cellulitis (ED) Patient Language: Greenlandic Prescriptions: New amoxicillin-pot clavulanate 875-125 mg tablet 1 tablet PO Q12H Qty: 14 0RF No Action lidocaine [Lidoderm] 5 % adhesive patch,medicated 1 patch topical DAILY Qty: 15 0RF Rx Instructions: leave on most painful area for up to 12 hrs lisinopril 10 mg tablet 10 mg PO DAILY Qty: 30 1RF Rx Instructions: take care with positional changes, can cause dizziness/lightheadedness. Follow-up/Referrals: Jazzy Crespo APRN [Primary Care Provider] - Time of Disposition: 14:16
--- OUTSIDE RECORDS SUMMARY | 2024-07-17 15:34 | XMS_ITS | Encounter Summary ---
Author Organization [facility] Address [address] [place] [id number] Care Team Providers Care Woodworking Machine Operator Name Role Phone None, Provider Primary Care Provider Unavaila ble Encounter Details Date Type Department Care Team (Late st Contact Info) Description 09/15/2018 Abstract SFL CONVERSION [address] [place] [address] , Generic Conversion, Social History Tobacco Use Types Packs/Day Years Used Date Smoking Tobacco: Never Assessed Sex and Gender Information Value Date Recorded Sex Assigned at Not on file Legal Sex Male 4:47 PM CDT Gender Identity Not on file Sexual Orientation Not on file documented as of this encounter Plan of Treatment Not on file documented as of this encounter Visit Diagnoses Not on filedocumented in this encounter Care Teams Woodworking Machine Operator Relationship Specialty Start Date End Date None, Provider, PCP - General 10/14/21 documented as of this encounter
--- OUTSIDE RECORDS SUMMARY | 2024-07-17 15:34 | XMS_ITS | Clinical Summary ---
Author Organization [facility] Address [address] [place] [id number] Care Team Providers Care Loom Overhauler Name Role Phone None, Provider MD Primary Care Provider Unavaila ble Allergies No known active allergies Medications oxyCODONE-acetam inophen (PERCOCET) 5-325 MG tabletIndication s:Acute Pain < 7 Day Supply Take 1 tablet by mouth every 6 (six) hours as needed for Pain. Indications : Acute Pain < 7 Day Supply 10 tablet 12/03/2022 Active Active Problems Problem Noted Date Diagnosed Date Crushing injury of chest 12/02/2022 Resolved Problems Problem Noted Date Diagnosed Date Resolved Date Crush accident 12/02/2022 12/03/2022 Social History Tobacco Use Types Packs/Day Years Used Date Smoking Tobacco: Every Day Cigarettes Smokeless Tobacco: Never Alcohol Use Standard Drinks/Week Comments Yes 2 (1 standard drink = 0.6 oz pur e alcohol) Sex and Gender Information Value Date Recorded Sex Assigned at Not on file Legal Sex Male 4:47 PM CDT Gender Identity Not on file Sexual Orientation Not on file Last Filed Vital Signs Vital Sign Reading Time Taken Comments Blood Pressure 158/94 03/11/2024 11:18 AM PLC TECHNICIAN Pulse 84 03/11/2024 11:18 AM PLC TECHNICIAN Temperature 36.9 C (98.5 F) 03/11/2024 11:18 AM PLC TECHNICIAN Respiratory Rate 20 03/11/2024 11:1 8 AM PLC TECHNICIAN Oxygen Saturation 95% 03/11/2024 11: 18 AM PLC TECHNICIAN Inhaled Oxygen Concentration - - Weight 121.2 kg (267 lb 3.2 oz) 024 11:18 AM PLC TECHNICIAN Height 182.9 cm (6') 03/11/2024 11:18 AM PLC TECHNICIAN Body Mass Index 36.24 03/11/2024 11:18 AM PLC TECHNICIAN Plan of Treatment Health Maintenance Due Date Last Done Comments Colorectal Cancer Screening Colonoscopy (10 Years) 1969 Annual Physical 1972 Pneumococcal Vaccine: Pediat rics (0 to 5 Years) and At-Risk Patients (6 to 64 Years) (1 of 2 - PCV) 11/25/1975 Hepatitis C 11/25/1987 Hepatitis B Vaccines (1 of 3 - 19+ 3-dose series) 1988 DTaP, Tdap and Td Vaccines ( 1 - Tdap) 04/11/2013 04/10/2013 Zoster Vaccines (1 of 2) 11/25/2019 COVID-19 Vaccine (2 - 2023-2 5 season) 2023 04/21/2021 Meningococcal B Vaccine Aged Out No l onger eligible based on patient's age to complete this topic Meningococcal Vaccine Aged Out No karen shannan eligible based on patient's age to complete this topic RSV Immunizations Under 20 Months Aged Out No longer eligible based on patient's age to complete this topic Insurance [facility] Advance Directives * Full Code (Latest Code Status on File) Date Activated Date Inactivated Comments 12/02/2022 3:04 PM 12/03/2022 11:34 AM Care Teams Loom Overhauler Relationship Specialty Start Date End Date None, Provider, PCP - General 10/14/21
[2024-07-17 16:02] LABS: MRSA (PCR) NOT DETECTED (NOT DETECTE)
--- OUTSIDE RECORDS SUMMARY | 2024-07-17 16:04 | XMS_ITS | Encounter Summary ---
Author Organization [facility] Address [address] [place] [address] Care Team Providers Care Green Energy Marketing Analyst Name Role Phone None, Provider Primary Care Provider Unavaila ble Encounter Details Date Type Department Care Team (Late st Contact Info) Description 09/15/2018 Abstract SFL CONVERSION [address] [place] [address] , Generic Conversion, Social History [...] on filedocumented in this encounter Care Teams Green Energy Marketing Analyst Relationship Specialty Start Date End Date None, Provider, PCP - General 10/14/21 documented as of this encounter
--- OUTSIDE RECORDS SUMMARY | 2024-07-17 16:04 | XMS_ITS | Clinical Summary ---
Author Organization [facility] Address [address] [place] [id number] Care Team Providers Care Wildland Fire Operations Specialist Name Role Phone None, Provider MD Primary [...] Comments Blood Pressure 158/94 03/11/2024 11:18 AM MARKETING SEGMENT MANAGER Pulse 84 03/11/2024 11:18 AM MARKETING SEGMENT MANAGER Temperature 36.9 C (98.5 F) 03/11/2024 11:18 AM MARKETING SEGMENT MANAGER Respiratory Rate 20 03/11/2024 11:1 8 AM MARKETING SEGMENT MANAGER Oxygen Saturation 95% 03/11/2024 11: 18 AM MARKETING SEGMENT MANAGER Inhaled Oxygen Concentration - - Weight 121.2 kg (267 lb 3.2 oz) 024 11:18 AM MARKETING SEGMENT MANAGER Height 182.9 cm (6') 03/11/2024 11:18 AM MARKETING SEGMENT MANAGER Body Mass Index 36.24 03/11/2024 11:18 AM MARKETING SEGMENT MANAGER Plan of Treatment Health Maintenance Due Date [...] patient's age to complete this topic Insurance [facility] OF [facility] Advance Directives * Full Code (Latest Code Status on File) Date Activated Date Inactivated Comments 12/02/2022 3:04 PM 12/03/2022 11:34 AM Care Teams Wildland Fire Operations Specialist Relationship Specialty Start Date End Date None, Provider, PCP - General 10/14/21
--- NOTE | 2024-07-18 21:19 | PC.NURSE ---
Preliminary culture reports received, reported prelim moderate gram + cocci in clusters noted to Rt thigh and no growth to date from Rt hand and Lt hand bld cx tubes, awaiting final results.
--- NOTE | 2024-07-21 14:15 | PC.NURSE ---
pt contacted and new antibiotic called to nadya in [place] BactrimDS BID FOR 10 DAYS FOR FINAL WOULD CULTURE POSITIVE FOR MRSA
== END 2024-07-17 14:41 | disposition home or self-care (01) ==
LOC: CHSED 14:24
PROVIDERS: Emergency Provider Internal Medicine Critical Care Medicine; PCP Nurse Practitioner Family
DX: L03.115 Cellulitis of right lower limb (principal); I10 Essential (primary) hypertension; F17.210 Nicotine dependence, cigarettes, uncomplicated
CPT/HCPCS: 36415; 87040; 87070; 87075; 87181; 87205; 87641; 99283

== ENCOUNTER 2024-10-17 13:16 | Emergency (ER) | payer OTHER, SELFPAY ==
[2024-10-17] VITALS (8 sets, daily range): BP systolic 114–153; BP diastolic 64–86; PULSE 117–128; RESP 16–18; TEMP 37.2–37.3; O2SAT 94–98
--- NOTE | 2024-10-17 13:35 | ECG_ITS ---
Test Date: 2024-10-17 13:56:02 Measurements Intervals [place] Rate: 116 P: 0 [place]: 0 QRS: -62 QRSD: 144 T: 41 QT: 323 QTc: 450 Interpretive Statements sinus tachycardia RIGHT BUNDLE BRANCH BLOCK [120+ ms QRS DURATION, UPRIGHT V1, 40+ ms S IN I/aVL/V4/V5/V6] LEFT ANTERIOR FASCICULAR BLOCK [QRS AXIS <= -45, QR IN I, RS IN II] ST ELEVATION, CONSIDER SEPTAL INJURY [MARKED ST ELEVATION W/O NORMALLY INFLECTED T-WAVE IN V1/V2] ACUTE OR No previous ECG available for comparison Electronically Signed On 10-18-2024 07:15:42 CDT by Edwin Alex M.D.
--- NOTE | 2024-10-17 13:42 | PC.NURSE ---
RN spoke with poison control, states no need for any lab work or testing, all reactions would be localized to injection and skin irritation.
[2024-10-17 13:59] LABS: Hematocrit 43.5 % (40.0-54.0); Hemoglobin 14.7 g/dL (14.0-18.0); Mean Corpuscular HGB Conc 33.8 g/dL (32-36); Mean Corpuscular Hemoglobin 31.8 pg (27.0-31.0); Mean Corpuscular Volume 94.2 fL (78.0-102.0); Platelet Count Result 167 K/mm3 (150-420); Red Blood Count 4.62 M/mm3 (4.70-6.10); White Blood Count 4.2 K/mm3 (4.8-10.8)
--- OUTSIDE RECORDS SUMMARY | 2024-10-17 14:04 | XMS_ITS | Clinical Summary ---
Author Organization [facility] Address [address] [place] [id number] Care Team Providers Care Instructor Creeler Name Role Phone None, Provider MD Primary [...] Comments Blood Pressure 158/94 03/11/2024 11:18 AM POLICE CAPTAIN PRECINCT Pulse 84 03/11/2024 11:18 AM POLICE CAPTAIN PRECINCT Temperature 36.9 C (98.5 F) 03/11/2024 11:18 AM POLICE CAPTAIN PRECINCT Respiratory Rate 20 03/11/2024 11:1 8 AM POLICE CAPTAIN PRECINCT Oxygen Saturation 95% 03/11/2024 11: 18 AM POLICE CAPTAIN PRECINCT Inhaled Oxygen Concentration - - Weight 121.2 kg (267 lb 3.2 oz) 024 11:18 AM POLICE CAPTAIN PRECINCT Height 182.9 cm (6') 03/11/2024 11:18 AM POLICE CAPTAIN PRECINCT Body Mass Index 36.24 03/11/2024 11:18 AM POLICE CAPTAIN PRECINCT Plan of Treatment Health Maintenance Due Date Last Done Comments Colorectal Cancer Screening Colonoscopy (10 Years) 1969 Annual Physical 1972 Hepatitis C 11/25/1987 Hepatitis B Vaccines (1 of 3 - 19+ 3-dose series) 1988 Pneumococcal Vaccine: 50+ Ye ars (1 of 2 - PCV) 1988 DTaP, Tdap and Td Vaccines ( [...] patient's age to complete this topic Insurance [facility] Advance Directives * Full Code (Latest Code Status on File) Date Activated Date Inactivated Comments 12/02/2022 3:04 PM 12/03/2022 11:34 AM Care Teams Instructor Creeler Relationship Specialty Start Date End Date None, Provider, PCP - General 10/14/21
--- OUTSIDE RECORDS SUMMARY | 2024-10-17 14:04 | XMS_ITS | Encounter Summary ---
Author Organization [facility] Address [address] [place] [address] Care Team Providers Care Corporate Job Titles Name Role Phone None, Provider Primary Care Provider Unavaila ble Encounter Details Date Type Department Care Team (Late st Contact Info) Description 09/15/2018 Abstract SFL CONVERSION [address] [place] [address] , Generic Conversion, Social History [...] on filedocumented in this encounter Care Teams Corporate Job Titles Relationship Specialty Start Date End Date None, Provider, PCP - General 10/14/21 documented as of this encounter
[2024-10-17 14:08] LABS: Alanine Aminotransferase 16 U/L (6-50); Albumin Level 3.9 g/dL (3.5-5.1); Alkaline Phosphatase 90 U/L (38-126); Anion Gap 3 mmol/L (4-12); Aspartate Amino Transferase 24 U/L (17-59); Bilirubin,Total 1.8 mg/dL (0.2-1.3); Blood Urea Nitrogen 15 mg/dL (9-20); Calcium 8.5 mg/dL (8.4-10.2); Carbon Dioxide 28 mmol/L (22-30); Chloride 105 mmol/L (98-107); Estimated CRCL calculation 89 ml/min; Estimated Glomerular Filt Rate > 60; Glucose 87 mg/dL (65-110); Osmolality Calculated 281 mOsm/kg (285-295); Potassium 4.1 mmol/L (3.4-5.0); Sodium 136 mmol/L (137-145); Total Protein 7.3 g/dL (6.3-8.2)
[2024-10-17 14:09] LABS: Band Neutrophils Percent 4 % (0-6); Lymphocytes Absolute Manual 0.08 K/mm3 (1.1-4.5); Lymphocytes Percent Manual 2 % (18-44); Monocytes Absolute Manual 0.04 K/mm3 (0.1-0.90); Monocytes Percent Manual 1 % (3-9); Neutrophils Absolute Manual 4.07 K/mm3 (1.3-6.7); Neutrophils Percent Manual 93 % (46-73); Total Cells Counted 100
--- NOTE | 2024-10-17 14:37 | PC.NURSE ---
Per ERP hold Diltiazem until after fluids are finished.
[2024-10-17] MEDS: SODIUM CHLORIDE 0.9% IV 1,000 ML 999 ML IV CONT (14:38)
--- NOTE | 2024-10-17 15:57 | ED_ITS ---
HPI - General Adult General Chief complaint: Unspecified Stated complaint: injected insect repellant Time Seen by Provider: 10/17/24 13:35 Source: patient Mode of arrival: ambulatory Limitations: no limitations History of Present Illness HPI narrative: this is a 53-year-old male with no significant past medical history IV drug abuser that accidentally injected a small amount of what he describes is bug spray and had a funny feeling sensation, with no chest pain no shortness of breath no irritation to the injection site of his left arm no fever chills no palpitations no nausea vomiting no abdominal pain no diarrhea constipation, no headaches no blurry vision. Onset (ago): hour(s) Radiation: non-radiation Severity: mild Related Data Allergies Allergy/AdvReac Type Severity Reaction Status Date / Time No Known Allergies Allergy Verified 07/30/24 13:25 Review of Systems 2 Review of Systems: All systems reviewed & are unremarkable except as noted in HPI and below PMFSH Past Medical History Medical History History of crack cocaine use Methamphetamine abuse Sleep apnea Hypertension History of drug abuse Social History Social History Smoking packs per day: 0.75 Smoking cigarettes per day: 15.0 Years smoked: 46 Smoking pack-years: 34.50 Smoking status: Heavy tobacco smoker Tobacco type: cigarettes Second hand tobacco smoke exposure: No Alcohol intake: current Drinks per week: 4 Alcohol use details: weekend social drinking Substance use: former Substance use type: crack/cocaine and methamphetamine Last use: last meth use - 5 months prior, crack/cocaine IV/smoking - last 1+ month Lack of Transportation: No Lack of Food: Never True Current Housing: I Have Housing Concerned About Future Housing: No Difficulty Paying Gas/Electric Bills: No Difficulty Paying for Meds: No Currently Unemployed: No Education: High School Diploma/GED Difficulty w/ Childcare or Family Care: No Spiritual care concerns: No Exam 2 Const: General: cooperative, healthy appearing, comfortable, no acute distress, well developed, alert and awake HENMT: Head: normal to inspection and No palpable skull fracture present E ars: hearing grossly normal bilaterally Face/Nose/Sinus: Normal external nose present Face and sinus: normal facial exam Throat: posterior oropharynx normal Eyes: General: appearance normal, both eyes and all related structures V isual Gonzalez: normal visual gonzalez by confrontation Alignment and Position: a lignment normal Neck: Neck: normal visual inspection, full ROM and no lymphadenopathy Chest: Chest palpation & inspection: normal inspection of the chest and normal palpation of entire chest wall Resp: Effort & Inspection: normal respiratory effort and able to speak in complete sentences Cardio: Jugular venous distension: no JVD Palpation: normal PMI Rate: t achycardic Rhythm: regular rhythm Heart sounds: S1 normal heart sound present GI: Inspection: normal to inspection GI Palp: Yes abdominal tenderness P ercussion: Yes normal to percussion : General: Yes bimanual renal exam normal bilaterally Back/Spine/Pelvis: Back: no CVA tenderness Skin: General skin exam: normal color and no rashes or lesions noted Neuro: General: oriented to person, oriented to place, oriented to time and patient oriented x3 Extrem: General: normal to inspection, full ROM and capillary refill normal Course Course Emergency Course: Patient had IV fluids administered, IV Cardizem, blood work obtained and reviewed EKG obtained and reviewed with patient. Advised patient to follow with primary care physician and was started medication for blood pressure and rate control. Vital Signs Vital signs: Vital Signs Temperature 37.3 C 10/17/24 13:19 Pulse Rate 128 H 10/17/24 13:19 Respiratory Rate 16 10/17/24 13:19 Blood Pressure 146/81 H 10/17/24 13:19 Pulse Oximetry 96 10/17/24 13:19 Oxygen Delivery Room Air 10/17/24 13:19 Temperature 37.3 C 10/17/24 13:19 Pulse Rate 120 H 10/17/24 15:30 Respiratory Rate 17 10/17/24 15:30 Blood Pressure 130/64 10/17/24 15:30 Pulse Oximetry 95 10/17/24 15:30 Oxygen Delivery Room Air 10/17/24 15:30 Medical Decision Making Vital Signs Vital Signs: Vital Signs Temperature 37.3 C 10/17/24 13:19 Pulse Rate 128 H 10/17/24 13:19 Respiratory Rate 16 10/17/24 13:19 Blood Pressure 146/81 H 10/17/24 13:19 Pulse Oximetry 96 10/17/24 13:19 Oxygen Delivery Room Air 10/17/24 13:19 Temperature 37.3 C 10/17/24 13:19 Pulse Rate 120 H 10/17/24 15:30 Respiratory Rate 17 10/17/24 15:30 Blood Pressure 130/64 10/17/24 15:30 Pulse Oximetry 95 10/17/24 15:30 Oxygen Delivery Room Air 10/17/24 15:30 Lab Data 10/17/24 13:47 10/17/24 13:47 Labs: Lab Results 10/17/24 Range/Units 13:47 WBC 4.2 L (4.8-10.8) K/mm3 RBC 4.62 L (4.70-6.10) M/mm3 Hgb 14.7 (14.0-18.0) g/dL Hct 43.5 (40.0-54.0) % MCV 94.2 (78.0-102.0) fL MCH 31.8 H (27.0-31.0) pg MCHC 33.8 (32-36) g/dL RDW 13.3 (11.6-14.4) % Plt Count 167 (150-420) K/mm3 MPV 9.7 (8.7-11.0) fl Immature Gran % (Auto) Not Reportable Neut % (Auto) Not Reportable Lymph % (Auto) Not Reportable [place] % (Auto) Not Reportable Eos % (Auto) Not Reportable Baso % (Auto) Not Reportable Lymph # (Auto) Not Reportable [place] # (Auto) Not Reportable Eos # (Auto) Not Reportable Baso # (Auto) Not Reportable Abs Immat Gran (auto) Not Reportable Absolute Neuts (auto) Not Reportable Absolute Nucleated RBC Not Reportable Total Counted 100 Neutrophils % (Manual) 93 H (46-73) % Band Neutrophils % 4 (0-6) % Lymphocytes % (Manual) 2 L (18-44) % Monocytes % (Manual) 1 L (3-9) % Nucleated RBC % Not Reportable Abs Neuts (Manual) 4.07 (1.3-6.7) K/mm3 Abs Lymphs (Manual) 0.08 L (1.1-4.5) K/mm3 Abs Monocytes (Manual) 0.04 L (0.1-0.90) K/mm3 Platelet Estimate Adequate (Adequate) Schistocytes Not Reportable Sodium 136 L (137-145) mmol/L Potassium 4.1 (3.4-5.0) mmol/L Chloride 105 (98-107) mmol/L Carbon Dioxide 28 (22-30) mmol/L Anion Gap 3 L (4-12) mmol/L BUN 15 (9-20) mg/dL Creatinine 1.12 (0.7-1.3) mg/dL Estim Creat Clear Calc 89 ml/min Estimated GFR > 60 (59 - ) Glucose 87 (65-110) mg/dL Calculated Osmolality 281 L (285-295) mOsm/kg Calcium 8.5 (8.4-10.2) mg/dL Total Bilirubin 1.8 H (0.2-1.3) mg/dL AST 24 (17-59) U/L ALT 16 (6-50) U/L Alkaline Phosphatase 90 (38-126) U/L Total Protein 7.3 (6.3-8.2) g/dL Albumin 3.9 (3.5-5.1) g/dL Critical Care Time Critical Care Time Critical Care Time: No Discharge Plan Discharge Clinical Impression: Injection administered, Tachycardia Patient Disposition: Home Condition: Stable Instructions: Antibiotic Form, Tachycardia (ED) Patient Language: Frisian Prescriptions: New metoprolol succinate 50 mg tablet extended release 24 hr 50 mg PO DAILY Qty: 30 0RF No Action lidocaine [Lidoderm] 5 % adhesive patch,medicated 1 patch topical DAILY Qty: 15 0RF Rx Instructions: leave on most painful area for up to 12 hrs lisinopril-hydrochlorothiazide 20-12.5 mg tablet 1 tablet PO DAILY Qty: 90 0RF Follow-up/Referrals: Jazzy Crespo APRN [Primary Care Provider] - Time of Disposition: 16:05
== END 2024-10-17 16:08 | disposition home or self-care (01) ==
PROVIDERS: Emergency Provider Emergency Medicine; PCP Nurse Practitioner Family
DX: T65.891A Toxic effect of other specified substances, accidental (unintentional), initial encounter (principal); R00.0 Tachycardia, unspecified; I10 Essential (primary) hypertension; F17.210 Nicotine dependence, cigarettes, uncomplicated
CPT/HCPCS: 36415; 80053; 85025; 93005; 96361; 96374; 99284; J7030